=== PATIENT | female | born 1945 | race Two or more races ===

== ENCOUNTER → 2017-01-17 | Outpatient (CLI) | payer MEDICARE | END | disposition home or self-care (01) | LOC: CFH 10:02 | PROVIDERS: ATTEND Family Medicine | DX: Z13.820 Encounter for screening for osteoporosis (principal); M85.88 Other specified disorders of bone density and structure, other site | CPT/HCPCS: 77080 ==

== ENCOUNTER → 2017-11-21 | Outpatient (CLI) | payer MEDICARE ==
[~2017-11-21] MED LIST: GADOBUTROL 7.5 MMOL/7.5 ML PFS ONE
== END | disposition home or self-care (01) ==
LOC: CFH 08:13
PROVIDERS: ATTEND Family Medicine
DX: G31.9 Degenerative disease of nervous system, unspecified (principal); I67.82 Cerebral ischemia; G93.89 Other specified disorders of brain; R90.82 White matter disease, unspecified
CPT/HCPCS: 70553; A9585

== ENCOUNTER 2020-04-07 17:16 | Emergency (ER) | payer MEDICARE ==
[~2020-04-07] VITALS: Ht 160 cm; Wt 55.5 kg
[~2020-04-07 17:16] MED LIST changes: +ACID1TAB7 PO; +AMLO2.5T5 PO; +AMOX-291 PO; +ASPI-963 PO; +Biotin PO; +CARV6.2512 PO; +CLOP75TA52 PO; +CRANBERRY SUPPLEMENT PO; -GADOBUTROL 7.5 MMOL/7.5 ML PFS ONE; +GLIP10TA13 PO; +GLIP10TA3 PO; +LISI-167 PO; +LISI1TAB23 PO; +METF10007 PO; +METF500T17 PO; +METO-282 PO; +METO25TA91 PO; +METR500T PO; +PRAV20TA2 PO; +ROSU10TA26 PO; +ROSU5TAB PO; +TICA90TA PO; +cranberry PO; +ferrous sulfate PO; +folic acid PO; +lisinopril-HCTZ PO; +vitamin b12 PO; +vitamin d3 PO
[2020-04-07 18:22] LABS: ALBUMIN 3.9 g/dL (3.4-5.0); ANION GAP 8 mmol/L (5-15); CHLORIDE 109 mmol/L (98-107)
[2020-04-07 18:27] LABS: ALANINE AMINOTRANSFERASE 36 U/L (12-78); ALKALINE PHOSPHATASE 138 U/L (45-117); BILIRUBIN,TOTAL 0.4 mg/dL (0.2-1.0); CREATININE 0.79 mg/dL (0.55-1.02); TOTAL PROTEIN 7.8 g/dL (6.4-8.2)
[2020-04-07 18:29] LABS: BASOPHILS % (AUTO) 1 % (0-1); EOSINOPHILS % (AUTO) 3 % (1-7); LYMPHOCYTES % (AUTO) 28 % (22-44); MD NO; MEAN CORPUSCULAR HEMOGLOBIN 31.2 pg (27.0-34.8); MEAN CORPUSCULAR HGB CONC 33.9 g/dL (32.4-35.8); MEAN PLATELET VOLUME 8.8 fL (7.4-10.4); MONOCYTES % (AUTO) 11 % (2-9); NEUTROPHILS % (AUTO) 57 % (42-75); PLATELET COUNT 263 x10^3/uL (130-400); RED BLOOD COUNT 4.45 x10^6/uL (3.82-5.3)
[2020-04-07] MEDS ORDERED: SODIUM CHLORIDE FLUSH 10ML SYR IVF ONE (18:30)
--- NOTE | 2020-04-07 18:41 | NUR ---
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
--- NOTE | 2020-04-07 19:17 | NUR ---
Contact Mian Winter, pt's nephew: [phone]
[2020-04-07] MEDS ORDERED: ACETAMINOPHEN 500 MG TABLET PO ONE (20:00)
[2020-04-07] MEDS ORDERED: ACETAMINOPHEN 500 MG TABLET ONE ×2 (20:05→20:13)
[2020-04-07 20:14] VITALS: BP 125/74
== END 2020-04-07 20:21 | disposition home or self-care (01) ==
LOC: ED 20:00
DX: R51.9 Headache, unspecified (principal); M54.2 Cervicalgia; I10 Essential (primary) hypertension; E11.9 Type 2 diabetes mellitus without complications
CPT/HCPCS: 36415; 70450; 80053; 85025; 99284